=== PATIENT | female | born 1995 | race Caucasian/White ===

== ENCOUNTER 2023-11-27 14:40 | Inpatient (IN) | payer MEDICAID | END 2023-11-27 23:59 | disposition home or self-care (01) | DRG 204 | LOC: MED 14:40 | PROVIDERS: ADMIT Internal Medicine; ATTEND Internal Medicine | DX: R55 Syncope and collapse (principal) | CPT/HCPCS: G0378 ==

== ENCOUNTER 2023-12-02 14:34 | Inpatient (IN) | payer MEDICAID ==
[~2023-12-02] VITALS: Ht 165.1 cm; Wt 90.7 kg
[2023-12-03] MEDS: VANCOMYCIN IV 1,000 MG in IV DEXTROSE 5% 250 ML IV SCH (04:33)
[2023-12-03 04:35] VITALS: BP 120/80; TEMP 99
[2023-12-03] MEDS ORDERED: IBUP-1955 PO (04:43)
[2023-12-03] MEDS ORDERED: IBUPROFEN 600 MG TABLET PO PRN (04:45)
[2023-12-03 05:09] VITALS: BP 120/80; TEMP 98
[2023-12-03] MEDS ORDERED: INSULIN REGULAR, HUMAN 300 UNIT/3 ML VIAL SQ PRN (05:15)
[2023-12-03] MEDS ORDERED: WATER TOP PRN (05:15)
[2023-12-03] MEDS ORDERED: SODIUM HYPOCHLORITE 0.5% TOP PRN (05:15)
[2023-12-03] MEDS ORDERED: DEXTROSE 50% 50 ML DISP.SYRIN IV PRN (05:15)
[2023-12-03] MEDS ORDERED: AMIODARONE HCL IV 450 MG in IV DEXTROSE 5% 250 ML IV PRN (05:30)
[2023-12-03] MEDS ORDERED: TPN AMINO ACID 4.25%/D10% 1,000 ML IV PRN (05:30)
[2023-12-03] MEDS ORDERED: VASOPRESSIN 40 UNIT in IV NORMAL SALINE 40 ML IV PRN (05:30)
[2023-12-03] MEDS ORDERED: NOREPINEPHRINE BITARTRATE 32 MG in IV NORMAL SALINE 218 ML IV PRN (05:30)
[2023-12-03] MEDS ORDERED: TPN AMINO ACID 4.25%/D10% 1,000 ML IV SCH ×2 (05:30)
[2023-12-03] MEDS ORDERED: ARIPIPRAZOLE 2 MG TABLET PO PRN (05:30)
[2023-12-03] MEDS ORDERED: AMIODARONE HCL IV 150 MG in IV DEXTROSE 5% 100 ML IV ONE (05:30)
[2023-12-03] MEDS ORDERED: MAGNESIUM SULFATE/D5W 100 ML IV SCH (05:45)
[2023-12-03] MEDS ORDERED: POTASSIUM CHLORIDE 50 ML IV SCH ×3 (05:45)
[2023-12-03] MEDS ORDERED: HYDROCODONE/APAP 10-325 MG TABLET PO PRN (06:00)
[2023-12-03] MEDS ORDERED: ARIPIPRAZOLE 10 MG TABLET PO PRN ×2 (06:00)
[2023-12-03] MEDS ORDERED: ATENOLOL 25 MG TABLET PO PRN (06:15)
[2023-12-03] MEDS ORDERED: BLOOD SUGAR DIAGNOSTIC 1 EACH STRIP VI SCH (08:00)
== END 2023-12-03 09:28 | disposition home or self-care (01) | DRG 204 ==
LOC: UNDOADMIN 14:34 → MED 14:34
PROVIDERS: ADMIT Internal Medicine; ATTEND Internal Medicine
DX: R55 Syncope and collapse (principal)
CPT/HCPCS: 36415; 76536; 86850; 86900; 86901; 86920; 93005; G0378; J0282; J1815; J3370; J3490; J7050; P9016